=== PATIENT | female | born 1955 | race African-American/Black ===

== ENCOUNTER 2019-09-23 10:53 | Outpatient (CLI) | payer MEDICARE, SELFPAY ==
--- NOTE | ~2019-09-23 | MM_ITS ---
EXAMINATION: MM screening luis BI w ernie HISTORY: Screening mammogram TECHNIQUE: Craniocaudal and mediolateral oblique 3-D tomosynthesis images were obtained and synthetic 2-D images were generated. CAD analysis was submitted and interpreted. COMPARISON: 09/23/2018 diagnostic left digital mammogram and limited left breast ultrasound 09/03/2018, 02/02/2016 bilateral digital screening mammogram examinations BREAST PARENCHYMAL COMPOSITION: The breasts are almost entirely fatty. FINDINGS: There is no evidence of suspicious mass, calcification, or architectural distortion to sugg est malignancy in either breast. There has been no suspicious interval change. IMPRESSION: 1. No mammographic evidence of malignancy. 2. Recommend routine screening mammography in one year. BI-RADS Category 1: Negative Reviewed, dictated and finalized at location A.
[2019-09-23 11:38] LABS: Basophils Percent Auto 0.7 % (0.2-1.2); Eosinophils Percent Auto 0.4 % (0-4.4); Hematocrit 45.4 % (37.0-47.0); Hemoglobin 14.3 g/dL (12.0-15.0); Immature Granulocyte Absolute 0.01 K/mm3 (0.00-0.031); Immature Granulocyte Percent A 0.2 % (0-0.5); Lymphocytes Absolute Auto 2.23 K/mm3 (0.9-3.2); Lymphocytes Percent Auto 49.7 % (18.3-44.2); Mean Corpuscular HGB Conc 31.5 g/dl (32-36); Mean Corpuscular Hemoglobin 30.6 pg (26-34); Mean Corpuscular Volume 97.2 fl (80-100); Monocytes Absolute Auto 0.4 K/mm3 (0.1-0.6); Monocytes Percent Auto 8.5 % (2.6-8.5); Neutrophils Absolute Auto 1.8 K/mm3 (1.3-6.7); Neutrophils Percent Auto 40.5 % (45.5-73.1); Platelet Count Result 492 k/mm3 (150-375); Red Blood Count 4.67 M/mm3 (4.2-5.4); Red Cell Distribution Width 13.1 % (11.5-14.5); White Blood Count 4.5 K/mm3 (4.5-10.0)
[2019-09-23 16:48] LABS: Hemoglobin A1C 6.1 % (<5.7)
[2019-09-23 16:51] LABS: Alanine Aminotransferase 18 U/L (4-35); Albumin Level 4.7 g/dL (3.5-5.1); Alkaline Phosphatase 105 U/L (38-126); Aspartate Amino Transferase 24 U/L (14-36); Bilirubin,Total 0.5 mg/dL (0.2-1.3); Blood Urea Nitrogen 13 mg/dL (7-17); Calcium 9.6 mg/dL (8.4-10.2); Carbon Dioxide 29 mmol/L (22-30); Chloride 98 mmol/L (98-107); Cholesterol 230 mg/dL (0-200); Estimated Glomerular Filt Rate > 60; Glucose 121 mg/dL (65-105); HDL Direct 44 mg/dL; Potassium 5.2 mmol/L (3.4-5.0); Sodium 137 mmol/L (137-145); Triglycerides 136 mg/dL (<150)
[2019-09-23 17:01] LABS: LDL Cholesterol Direct 153 mg/dL
== END 2019-09-23 10:54 | disposition home or self-care (01) ==
PROVIDERS: PCP Emergency Medicine; Visit Provider Emergency Medicine
DX: R53.83 Other fatigue (principal); E78.5 Hyperlipidemia, unspecified; E11.9 Type 2 diabetes mellitus without complications; E55.9 Vitamin D deficiency, unspecified; Z12.31 Encounter for screening mammogram for malignant neoplasm of breast
CPT/HCPCS: 36415; 77063; 77067; 80053; 80061; 82652; 83036; 84443; 85025

== ENCOUNTER 2020-02-10 12:02 | Outpatient (CLI) | payer MEDICARE, SELFPAY ==
[2020-02-10 12:37] LABS: Hemoglobin A1C 5.9 % (<5.7)
[2020-02-10 12:43] LABS: Alanine Aminotransferase 16 U/L (4-35); Albumin Level 4.5 g/dL (3.5-5.1); Alkaline Phosphatase 90 U/L (38-126); Anion Gap 11 mmol/L (8-16); Aspartate Amino Transferase 25 U/L (14-36); Bilirubin,Total 0.5 mg/dL (0.2-1.3); Blood Urea Nitrogen 15 mg/dL (7-17); Calcium 9.4 mg/dL (8.4-10.2); Carbon Dioxide 29 mmol/L (22-30); Chloride 99 mmol/L (98-107); Cholesterol 243 mg/dL (0-200); Estimated Glomerular Filt Rate > 60; Glucose 116 mg/dL (65-105); HDL Direct 38 mg/dL; Potassium 4.6 mmol/L (3.4-5.0); Sodium 139 mmol/L (137-145); Triglycerides 147 mg/dL (<150)
[2020-02-10 12:54] LABS: LDL Cholesterol Direct 162 mg/dL
[2020-02-13 23:42] LABS: Vitamin D 1,25 (OH)2 Total 51 pg/mL (18-72); Vitamin D2 1,25 (OH)2 <8 pg/mL; Vitamin D3 1,25 (OH)2 51 pg/mL
== END 2020-02-10 12:03 | disposition home or self-care (01) ==
PROVIDERS: PCP Emergency Medicine; Visit Provider Emergency Medicine
DX: E78.5 Hyperlipidemia, unspecified (principal); E55.9 Vitamin D deficiency, unspecified; E11.9 Type 2 diabetes mellitus without complications
CPT/HCPCS: 36415; 80053; 80061; 82652; 83036

== ENCOUNTER 2020-07-28 08:38 | Outpatient (CLI) | payer MEDICARE, SELFPAY ==
[2020-07-28 09:01] LABS: Hemoglobin A1C 5.9 % (<5.7)
[2020-07-28 09:06] LABS: Alanine Aminotransferase 17 U/L (4-35); Albumin Level 4.4 g/dL (3.5-5.1); Alkaline Phosphatase 90 U/L (38-126); Anion Gap 6 mmol/L (8-16); Aspartate Amino Transferase 25 U/L (14-36); Bilirubin,Total 0.6 mg/dL (0.2-1.3); Blood Urea Nitrogen 13 mg/dL (7-17); Calcium 9.4 mg/dL (8.4-10.2); Carbon Dioxide 32 mmol/L (22-30); Chloride 101 mmol/L (98-107); Cholesterol 233 mg/dL (0-200); Estimated Glomerular Filt Rate > 60; Glucose 145 mg/dL (65-105); HDL Direct 44 mg/dL; Potassium 4.6 mmol/L (3.4-5.0); Sodium 139 mmol/L (137-145); Triglycerides 118 mg/dL (<150)
[2020-07-28 09:17] LABS: LDL Cholesterol Direct 146 mg/dL
== END 2020-07-28 08:39 | disposition home or self-care (01) ==
PROVIDERS: PCP Emergency Medicine; Visit Provider Emergency Medicine
DX: E78.5 Hyperlipidemia, unspecified (principal); E11.9 Type 2 diabetes mellitus without complications
CPT/HCPCS: 36415; 80053; 80061; 83036

== ENCOUNTER 2020-08-31 09:44 | Outpatient (CLI) | payer MEDICARE, SELFPAY ==
--- NOTE | ~2020-08-31 | XR_ITS ---
EXAMINATION: XR hip BI 2V w AP pelvis DATE: 08/31/2020 10:31 INDICATION: Right hip pain TECHNIQUE: Anteroposterior view of the pelvis and anteroposterior and frog-leg lateral views of the l eft hip and anteroposterior and frog-leg lateral views of the right hip and were obtained. COMPARISON: None. FINDINGS: Alignment is normal. No fracture or suspected avascular necrosis. Mild bilateral hip osteoarthritis w ith minimal superolateral predominant nonuniform joint space narrowing and small acetabular marginal osteophytes. Bilateral severe lower lumbar facet osteoarthritis. Sacrum and bilateral sacroiliac join ts are unremarkable. IMPRESSION: 1. Mild bilateral hip osteoarthritis. Reviewed, dictated and finalized at location A.
--- NOTE | ~2020-08-31 | XR_ITS ---
EXAMINATION: XR wrist LT 2V DATE: 08/31/2020 10:31 INDICATION: Left wrist pain. TECHNIQUE: 2 views of left wrist were obtained. COMPARISON: None. 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 No fracture. There is severe osteoarthritis of radiolunate joint, moderate osteoarthritis of triscaphe joint, and mild osteoarthritis of first carp ometacarpal joint. IMPRESSION: 1. Polyarticular osteoarthritis. Reviewed, dictated and finalized at location B.
--- NOTE | ~2020-08-31 | XR_ITS ---
EXAMINATION: XR shoulder RT min 2V DATE: 08/31/2020 10:31 INDICATION: Right shoulder pain TECHNIQUE: AP internally and externally rotated, AP oblique externally rotated and axillary views of the right shoulder were obtained. COMPARISON: None FINDINGS: Normal alignment. No fracture.Moderate glenohumeral osteoarthritis with small marginal osteophytes a s well as moderate cephalad predominant nonuniform joint space narrowing. There is subarticular scler osis and cystic change at the superomedial aspect of the right humeral head. Mild acromioclavicular o steoarthritis. Soft tissues are unremarkable. Chronic linear band of discoid atelectasis/scarring in the right mid to lower lung zone which can be seen on radiographs dated 09/03/2018. IMPRESSION: Moderate right glenohumeral and mild right acromioclavicular osteoarthritis. Reviewed, dictated and finalized at location A.
--- NOTE | ~2020-08-31 | XR_ITS ---
XR lumbar spine 2-3V 08/31/2020 10:31 Indication: Back pain Procedure: 3 views lumbar spine Comparison: 11/29/2017 Findings: There is disc narrowing at L3-4. There is grade 1 degenerative spondylolisthesis at L4-5 an d L5-S1 secondary to facet hypertrophy. Vertebral body heights are maintained. There is mild disc taurus rowing at L4-5. Pedicles intact. Sacral foramen are symmetric. Impression: 1: Moderate lumbar spondylosis with grade 1 degenerative spondylolisthesis at L4-5 and L5-S1. Reviewed, dictated and finalized at location A. Impression: 1: Moderate lumbar spondylosis with grade 1 degenerative spondylolisthesis at L 4-5 and L5-S1.
--- NOTE | ~2020-08-31 | XR_ITS ---
EXAMINATION: XR wrist RT 2V DATE: 08/31/2020 10:30 INDICATION: Right wrist pain. TECHNIQUE: 2 views of right wrist were obtained. COMPARISON: None. 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 No fracture. There is severe osteoarthritis of radiolunate joint. There is degenerative change of distal ulna, consistent with ulnocarpal impaction syndrome. There is a dystrophic calcification ulnar to fifth proximal interphalangeal joint. IMPRESSION: 1. 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 Reviewed, dictated and finalized at location B.
[2020-08-31 10:11] LABS: Hemoglobin A1C 6.1 % (<5.7)
[2020-08-31 10:18] LABS: Alanine Aminotransferase 17 U/L (4-35); Albumin Level 4.3 g/dL (3.5-5.1); Alkaline Phosphatase 87 U/L (38-126); Anion Gap 6 mmol/L (8-16); Aspartate Amino Transferase 31 U/L (14-36); Bilirubin,Total 0.3 mg/dL (0.2-1.3); Blood Urea Nitrogen 13 mg/dL (7-17); Calcium 9.2 mg/dL (8.4-10.2); Carbon Dioxide 30 mmol/L (22-30); Chloride 102 mmol/L (98-107); Cholesterol 203 mg/dL (0-200); Estimated Glomerular Filt Rate > 60; Glucose 119 mg/dL (65-105); HDL Direct 42 mg/dL; Potassium 4.7 mmol/L (3.4-5.0); Sodium 138 mmol/L (137-145); Triglycerides 67 mg/dL (<150)
[2020-08-31 10:29] LABS: LDL Cholesterol Direct 139 mg/dL
== END 2020-08-31 09:45 | disposition home or self-care (01) ==
LOC: ANHLAB 09:48
PROVIDERS: PCP Emergency Medicine; Visit Provider Emergency Medicine
DX: R73.03 Prediabetes (principal); M47.817 Spondylosis without myelopathy or radiculopathy, lumbosacral region; M16.0 Bilateral primary osteoarthritis of hip; M19.032 Primary osteoarthritis, left wrist; M19.011 Primary osteoarthritis, right shoulder; M19.042 Primary osteoarthritis, left hand; M18.12 Unilateral primary osteoarthritis of first carpometacarpal joint, left hand; M19.031 Primary osteoarthritis, right wrist; M24.831 Other specific joint derangements of right wrist, not elsewhere classified; I10 Essential (primary) hypertension
CPT/HCPCS: 36415; 72100; 73030; 73100; 73521; 80053; 80061; 83036

== ENCOUNTER 2020-12-26 13:53 | Outpatient (CLI) | payer OTHER, SELFPAY ==
--- NOTE | ~2020-12-26 | MR_ITS ---
EXAMINATION: MR lumbar spine wo con DATE: 12/26/2020 16:02 INDICATION: Lumbar radicular pain. TECHNIQUE: Magnetic resonance imaging (MRI) of the lumbar spine was performed without intravenous con trast. Sequences included sagittal T2-weighted FSE, sagittal T2-weighted FS FSE, sagittal T1-weighted FSE, and axial T2-weighted FSE. COMPARISON: Lumbar spine radiographs 08/31/2020 FINDINGS: There is 6 mm anterolisthesis of L4 on L5 and 4 mm anterolisthesis of L5 on S1. Vertebral b shannon heights are normal. There is moderately decreased disc height at L3-L4. The distal spinal cord si gnal intensity is normal. The conus medullaris is at L1. The following disc levels are specifically d iscussed: L1-L2: The disc does not extend beyond the endplate margin. There is mild bilateral facet joint osteo arthritis. There is no neural foraminal stenosis. There is no central canal stenosis. L2-L3: The disc is mildly bulging. There is mild right and moderate left facet joint osteoarthritis. There is mild bilateral neural foraminal stenosis. There is no central canal stenosis. L3-L4: The disc is bulging. There is severe bilateral facet joint osteoarthritis. There is hypertroph y of the ligamentum flavum. There is moderate bilateral neural foraminal stenosis. There is mild cent ral canal stenosis. L4-L5: The disc is bulging. There is severe bilateral facet joint osteoarthritis. There is hypertroph y of the ligamentum flavum. There is moderate bilateral neural foraminal stenosis. There is moderate central canal stenosis. L5-S1: The disc is bulging. There is severe bilateral facet joint osteoarthritis. There is mild bilat eral neural foraminal stenosis. There is mild central canal stenosis. IMPRESSION: 1. Moderate lumbar spondylosis. Reviewed, dictated and finalized at location B.
== END 2020-12-26 13:54 | disposition home or self-care (01) ==
PROVIDERS: PCP Emergency Medicine; Visit Provider Nurse Practitioner Family
DX: M54.16 Radiculopathy, lumbar region (principal); M47.816 Spondylosis without myelopathy or radiculopathy, lumbar region
CPT/HCPCS: 72148